=== PATIENT | female | born 1970 | race Caucasian/White ===

== ENCOUNTER → 2016-05-20 | Outpatient (CLI) | payer BC ==
[~2016-05-20] MED LIST: ADVIL200 MG PO; ASCORBIC ACID500 MG PO; ATIVAN 0.5MG0.5 MG PO; BENADRYL25 MG PO; BENGAY ULTRA S1 EACH TOP; BREO ELLIPTA 11 EACH INH; FIORINAL 50-321 EACH PO; FLEXERIL10 MG PO; FLOMAX0.4 MG PO; GABAPENTIN300 MG PO; JUICE PLUS GUMMIES PO; PROAIR HFA8.5 GM PO; SINGULAIR10 MG PO; TYLENOL325 MG PO; ZOLOFT25 MG PO; ZYRTEC10 MG PO
--- NOTE | ~2016-05-20 | ECHO ---
Transthoracic Echocardiography Report (TTE) Demographics Patient Name GUILLE MCDANIEL Date of Study 05/20/2016 Patient Number [id number] Visit Number [id number] Date of 1970 Room Number Accession Number [id number] Gender Female Age 45 year(s) Referring Jermaine Car MD Angular Js Developer Gali Wynne [facility] Physician Josias Anderson Physician Interpreting Edgardo Adlergato Film And Video Graphics Designer Physician Supervising Ordering Physician Jermaine Car MD, MD/P Nurse Stress Housekeeping Supervisor Hotel Conclusions Contractility Score Summary Normal Left Ventricular contractility was noted. Summary The estimated left ventricular ejection fraction is 60%. The left ventricle is normal in size . Diastolic assessment reveals Grade I diastolic dysfunction. The aortic valve is mildly sclerotic. There is mild aortic regurgitation by color Doppler. The aortic root appears mildly dilated. The maximum diameter measures 3.9 cm. Procedure Type of Study TTE procedure:2D Echocardiogram, M-Mode, Doppler , Color Doppler. Procedure Date Date: 05/20/2016 Start: 09:56 AM Study Location: Inpatient Portable Technical Quality: Good visualization Indications:Heart murmur and Shortness of breath. Appropriate Use Criteria: 9 Patient Status: Routine HR: 69 bpm BP: 140/74 mmHg M-Mode/2D Measurements LV Diastolic Dimension: 5.02 cm LV Systolic Dimension: 2.82 cm LV Septum Diastolic: 0.77 cm LV PW Diastolic: 0.88 cm AO Root Dimension: 2.8 cm Cardiac Output: 7.21 l/min AV Cusp Separation: 2 cm RV Diastolic Dimension: 3.12 cm LA volume: 41 ml LVOT: 2.2 cm RV Base: 3.26 cm LVOT VTI: 27.5 cm RV Mid: 2.74 cm LV Stroke volume: 104.48 ml TAPSE: 2.66 cm TDI-S': 14.9 cm/s Doppler Measurements AV Peak Velocity: 1.29 m/s MV Peak E-Wave: 0.64 m/s AV Peak Gradient: 6.66 mmHg MV Peak A-Wave: 0.78 m/s AV Mean Gradient: 4 mmHg MV E/A Ratio: 0.82 LVOT Peak Velocity: 1.14 m/s MV P1/2t: 36 msec AV P1/2t: 696 msec Estimated RAP:8 mmHg PV Peak Velocity: 0.93 m/s E' Septal Velocity: 0.09 m/s PV Peak Gradient: 3.46 mmHg A' Septal Velocity: 0.09 m/s Findings Left Ventricle The left ventricle is normal in size . Diastolic assessment reveals Grade I diastolic dysfunction. Right Ventricle Normal right ventricle structure and function. Left Atrium Normal left atrial size. Right Atrium Normal right atrial size. IVC measures 2.1 cm with inspiratory collapse. Mitral Valve Normal mitral valve structure and function. Trivial mitral regurgitation by color Doppler. Aortic Valve The aortic valve is mildly sclerotic. There is mild aortic regurgitation by color Doppler. Tricuspid Valve Normal tricuspid valve structure and function. Trivial tricuspid regurgitation by color Doppler. Pulmonic Valve Normal pulmonic valve structure and function. Pericardial Effusion No evidence of pericardial effusion. Miscellaneous The aortic root appears mildly dilated. The maximum diameter measures 3.9 cm. Pleural Effusion No evidence of pleural effusion. Contractility Score LV regional wall motion:(0-Non visualized 1-Normal 2-Hypokinesis 3-Akinesis 4-Dyskinesis 5-Aneurysm) Signature dtt: FRITZ SERRANO dtd: 05/20/16 0956 Physician Self Edit
--- NOTE | ~2016-05-20 | PUL ---
PATIENT'S NAME: GUILLE MCDANIEL [facility] AGE: 45 Y [address] ROOM: [place] [address] LOCATION: [facility] ADMIT DATE: 05/20/2016 Pulmonary DISCHARGE DATE: FAMILY PHYSICIAN: Zaira Dean MD ATTENDING PHYSICIAN: Zaira Dean NAME OF PROCEDURE: Pulmonary Function Test DATE OF PROCEDURE: May 20, 2016 TECH: STORMY Cruz REASON FOR EXAM: Shortness of breath RESULTS: 1. FVC was 3.3 liters which is 95% predicted and normal, FEV1 was 2.83 liters which is 101% of predicted and normal, and FEV1/FVC was 86% and normal. The flow volume curve did not reveal any significant airflow limitation. After bronchodilator administration FVC increased to 3.48 liters which is a 5% increase and FEV1 increased to 2.94 liters which is a 4% increase. FEV1/FVC was 85%. 2. DLCO was 21.9 with an adjusted DLCO of 25.4 which is 116% of predicted and normal. 3. Total lung capacity was 5.01 liters which is 104% of predicted and normal, and residual volume was 1.69 liters which is 103% of predicted and normal. PHYSICIAN INTERPRETATION: The patient has no airflow limitation and no significant bronchodilator response. Her diffusion capacity is normal. There is no evidence of restrictive lung disease. Essentially this is a normal pulmonary function test. MD YUKO ALEXANDER/rei /[id number] dtt: 05/25/16 1617 , RENATA DARBY dtd: 05/25/16 1519
== END | disposition disaster alternative care site (69) ==
LOC: GCAR 09:40
DX: R07.89 Other chest pain (principal); E55.9 Vitamin D deficiency, unspecified; D64.9 Anemia, unspecified; I35.1 Nonrheumatic aortic (valve) insufficiency; I51.89 Other ill-defined heart diseases; R06.02 Shortness of breath; R68.89 Other general symptoms and signs; R01.1 Cardiac murmur, unspecified; R06.2 Wheezing; Z82.49 Family history of ischemic heart disease and other diseases of the circulatory system

== ENCOUNTER → 2016-05-25 | Outpatient (CLI) | payer BC ==
--- NOTE | ~2016-05-25 | ESTC ---
Cardiac Perfusion Imaging Demographics Patient Name JONAS Etienne Gender Female Patient Number [id number] Race Visit Number [id number] Ethnicity Corporate ID Room Number Accession Number [id number] Height 66 inches Date of 1970 Weight 150 pounds Interpreting Ubaldo Roland MD Date of study 05/25/2016 Physician Supervising /EDGAR Ibarra NM Technologist Yohan Sultana APRN Ordering Physician Stress metrology technician Stress ECG Reading Jhon Ibarra Nurse Demetri Valdez RN Physician CHRISTINE The procedure was explained in detail to the patient. Risks, complications and alternative treatments were reviewed. Written consent was obtained. Medications Reviewed with Patient prior to Procedure. Procedure Admit Source:Other. Procedure Type: Nuclear Stress Test:Exercise, Cardiolite Stress Test Procedure Start time: 05/25/2016 00:00 Indications: Chest pressure. Risk Factors The patient risk factors include:family history of premature CAD. Conclusions Summary Cardiolite SPECT images demonstrate homogenous uptake of radioactive tracer. NO evidence of inducible reversible defect and no evidence of underlying fixed defect. Normal TID ratio of 1.07 Gated images demonstrate normal left ventricular systolic function. LVEF is 74% Stress Protocols Resting ECG RSR without ST changes Resting HR:63 bpm Resting BP:126/82 mmHg Pre-stress physical exam: Complains of chest pain with and without exertion. Has been training for [employer] and had issues with cyanotic lips. Echo pending, PFT's pending. O2 Sat 100%. Stress Protocol:Exercise Peak HR:150 bpm HR response: Appropriate Peak BP:164/70 mmHg BP response: Appropriate Predicted HR: 174 bpm HR/BP product:47731 % of predicted HR: 86 Test duration:11:03 min Reason for termination:Target heart rate Perceived exertion:12 ECG Findings Sinus rhythm to sinus tachy. Arrhythmias No rhythm abnormality. Symptoms At 3 minutes complained of 1/10 chest discomfort. Corner of mouth tingly and cyanotic with max HR 150. O2 Sats remain 150. Chest pain better after treadmill stopped and rests. Stress Interpretation Appropriate hemodynamic response to exercise. No significant ST-T wave changes with exercise. EKG portion is negative for ischemia by diagnostic criteria. The Oconnor Treadmill score was 12 .This corresponds to a low risk stress test. Stress supervision and interpretation provided by Anny Ferreira APRN . Imaging Results Summed scores - Summed stress score: 2 - Summed rest score: 1 - Summed difference score: 1 Stress ejection Ejection fraction:74 % EDV :96 ml ESV :25 ml Stroke volume :71 ml LV mass :136 gr Imaging Protocols Rest Stress Isotope:Tc99m Sestamibi IV Isotope: Tc99m Sestamibi IV Isotope dose:10.4 mCi Isotope dose:31.8 mCi Date:05/25/2016 07:04 Date:05/25/2016 08:53 Technique: SPECT Technique: Gated Supine SPECT Supine Scan Time:30 minutes post injection Scan Time:45-60 minutes post injection Medical History Admission Data Admission date: 05/25/2016 Admission Time: 06:27 Hospital Status: Outpatient. Signatures dtt: Luan Conner (cardio) dtd: 05/25/16 0000 Physician Self Edit
== END | disposition disaster alternative care site (69) ==
LOC: GRAD 06:27
DX: R07.89 Other chest pain (principal); Z82.49 Family history of ischemic heart disease and other diseases of the circulatory system
CPT/HCPCS: A9500

== ENCOUNTER 2016-06-05 11:12 | Emergency (ER) | payer BC ==
--- NOTE | ~2016-06-05 | ER ---
PATIENT'S NAME: GUILLE MCDANIEL [facility] AGE: 45 Y [address] ROOM: [place] [address] LOCATION: [facility] ADMIT DATE: 06/05/2016 ER/Outpatient Report DISCHARGE DATE: 06/05/2016 FAMILY PHYSICIAN: Zaira Dean MD ATTENDING PHYSICIAN: Frank Hui CHIEF COMPLAINT: Chest pressure and pain. HISTORY OF PRESENT ILLNESS: The patient works as a nurse. She was at work today when she had onset of chest pain approximately an hour before arrival. It is located in the center of her chest and radiates down her left arm. She does have some left-sided jaw pain. She states that she has been having some issues with her heart lately. She has noted that she becomes cyanotic during her karate workouts. She has been undergoing an evaluation for same. She has had recent cardiac echo and pulmonary function testing with no significant findings for that. Her recent stress test was negative for inducible ischemic the deficit. She does have a family history of cardiac disease with grandparent having early onset cardiac disease at 50, but her mother having cardiac disease in her 70s. The patient states she has never had any pain exactly like this with the intensity of this before. She did come in by ambulance. She did receive some nitroglycerin en route. She stated that made her pain worse rather than better and she did receive aspirin prior to arrival. PAST MEDICAL HISTORY: Notable for possible aortic valve disease as well as very mild dilation of the ascending aorta. She has a history of depression and anxiety as well. The patient does report a history of thalassemia. MEDICATIONS: Documented on the record and reviewed by me. ALLERGIES: DOCUMENTED ON THE RECORD AND REVIEWED BY ME. REVIEW OF SYSTEMS: All systems reviewed and negative except as noted in the HPI. PHYSICAL EXAMINATION: VITAL SIGNS: Blood pressure 135/77, pulse is 87, respiratory rate is 20, temperature 97.8, SpO2 is 97% on room air. Pain is rated 8/10. GENERAL: An age appropriate female, sitting upright in the exam chair, holding her right fist to her chest. She is in mild discomfort. No respiratory distress. PATIENT'S NAME: GUILLE MCDANIEL [facility] AGE: 45 Y [address] ROOM: [place] [address] LOCATION: [facility] ADMIT DATE: 06/05/2016 ER/Outpatient Report DISCHARGE DATE: 06/05/2016 FAMILY PHYSICIAN: Zaira Dean MD ATTENDING PHYSICIAN: Frank Hui NEUROLOGIC: Awake and alert. GCS is 15. No focal deficits. No obvious asymmetry on exam. HEENT: Normocephalic, atraumatic. Eyes are PERRL. Oropharynx is clear. NECK: Supple. Trachea is midline. CHEST: Heart is regular rate and rhythm, no appreciated murmurs. LUNGS: Clear to auscultation bilateral in all lung tolbert. No rhonchi, wheezes, or rales. ABDOMEN: Soft, nontender, and nondistended. No rebound or guarding. BACK: Nontender to palpation throughout. There is no CVA tenderness. EXTREMITIES: Warm and well perfused. No appreciated peripheral edema or deformities. SKIN: Warm, dry, and intact. LABORATORY DATA AND X-RAYS: Chest x-ray reviewed by me with no obvious abnormalities. The pre-hospital and in-hospital EKGs were obtained. Significant artifact on pre-hospital and initial EKG; however, no signs of acute ischemia. No ST-segment elevation or changes. Normal intervals with a rate of 80. Lactate is 1.3. CBC is notable for hemoglobin of 9.5, WBCs of 5.7, and platelets of 395. INR is 0.98. D- dimer 0.24. CRP is below detectable threshold. CMS is without abnormality. Troponin is below threshold. Repeat EKG with resolution of artifact slightly delayed R-wave progression, but otherwise normal EKG. Repeat troponin and CK- MB remains non concerning. IMPRESSION: Chest pain, not otherwise specified. EMERGENCY DEPARTMENT COURSE: The patient was seen and evaluated. The nitroglycerin made her chest pain worse, so we did not give any more of that. She received aspirin prior to arrival. She is given Zofran, GI cocktail, morphine with no improvement in her pain. Ativan and a second dose of morphine did help her get better. The pain did get a slightly worse when she was up ambulating, but it was remained tolerable. I did contact Dr. Conner, mate fishing vessel, to schedule to catheter in a few days. Based on this presentation and discussion with him I think the patient is at low risk for ACS. I discussed risks and benefits, and the patient has elected to go home. Her presentation is not consistent with PE as the patient's Dimer is below threshold and no other signs or symptoms of same. No pneumothorax or pneumonia. Her presentation is not consistent with dissection or expanding aneurysm at this time. The patient has good medical knowledge and I feel comfortable sending her home with instructions to return if there is any worsening of her current presentation. All questions were answered. The patient was discharged in good condition. PATIENT'S NAME: GUILLE MCDANIEL [facility] AGE: 45 Y [address] ROOM: [place] [address] LOCATION: [facility] ADMIT DATE: 06/05/2016 ER/Outpatient Report DISCHARGE DATE: 06/05/2016 FAMILY PHYSICIAN: Zaira Dean MD ATTENDING PHYSICIAN: Frank Hui FRANK HUI MD JH/modl /[id number] d: 06/06/16 1631 t: 06/23/16 0853, OUTPATIENT REPORT
[2016-06-05 11:44] LABS: BASOPHIL # 0.1 K/uL (0.0-0.2); BASOPHIL % 0.9 %; EOSINOPHIL # 0.2 K/uL (0.0-0.5); EOSINOPHIL % 2.6 %; HEMATOCRIT 30.9 % (33.0-46.0); HEMOGLOBIN 9.5 g/dL (10.0-15.0); IMMATURE GRANULOCYTE % 0.4 %; LYMPHOCYTE # 1.9 K/uL (0.8-4.0); LYMPHOCYTE % 33.6 %; MCH 18.6 pg (27.0-34.0); MCHC 30.7 gm/dL (32.0-36.5); MCV 60.6 fl (83.0-98.0); MONOCYTE # 0.4 K/uL (0.0-1.0); MONOCYTE % 6.5 %; MPV 9.9 fl (9.4-12.4); NEUTROPHIL # (ANC) 3.2 K/uL (1.8-7.8); NRBC % 0 /100WBC (0-0.00); PLATELET COUNT 395 K/uL (150-450); WBC 5.7 K/uL (4.0-11.0)
[2016-06-05 11:53] LABS: INR - (THERAPEUTIC) 0.98 (0.92-1.07); PROTIME 10.3 SECONDS (9.8-11.4); PTT 28 SECONDS (25-32)
[2016-06-05 12:07] LABS: ALBUMIN 3.8 gm/dL (3.5-5.0); ALK PHOS 46 IU/L (33-138); ALT 29 IU/L (12-78); ANION GAP 10.7 (10.0-19.0); AST 17 IU/L (10-40); BLOOD UREA NITROGEN 9 mg/dL (6-24); CALCIUM 8.6 mg/dL (8.5-10.5); CHLORIDE 106 mMol/L (96-110); CO2 25 mMol/L (22-32); CREATININE 0.7 mg/dL (0.5-1.1); ESTIMATED GFR (MDRD EQUATION) > 60; POTASSIUM 3.7 mMol/L (3.7-5.1); SODIUM 138 mMol/L (135-145); TOTAL BILIRUBIN 0.4 mg/dL (0.0-1.5); TOTAL PROTEIN 7.1 g/dL (6.0-8.4)
[2016-06-05 13:54] LABS: CPK 76 IU/L (21-215)
[2016-06-07] MEDS ORDERED: GABAPENTIN300 MG PO ×2 (09:23)
[2016-06-07] MEDS ORDERED: SINGULAIR10 MG PO (09:23)
[2016-06-07] MEDS ORDERED: ZOLOFT25 MG PO (09:23)
[2016-06-07] MEDS ORDERED: BREO ELLIPTA 11 EACH INH (09:24)
[2016-06-07] MEDS ORDERED: FLOMAX0.4 MG PO (09:24)
[2016-06-07] MEDS ORDERED: FLEXERIL10 MG PO (09:25)
[2016-06-07] MEDS ORDERED: ATIVAN 0.5MG0.5 MG PO (09:25)
[2016-06-07] MEDS ORDERED: ZYRTEC10 MG PO (09:26)
[2016-06-07] MEDS ORDERED: FIORINAL 50-321 EACH PO (09:26)
[2016-06-07] MEDS ORDERED: BENADRYL25 MG PO (09:26)
[2016-06-07] MEDS ORDERED: TYLENOL325 MG PO (09:27)
[2016-06-07] MEDS ORDERED: ADVIL200 MG PO (09:27)
[2016-06-07] MEDS ORDERED: BENGAY ULTRA S1 EACH TOP (09:28)
[2016-06-07] MEDS ORDERED: JUICE PLUS GUMMIES PO (09:29)
[2016-06-07] MEDS ORDERED: ASCORBIC ACID500 MG PO (09:29)
[2016-06-07] MEDS ORDERED: PROAIR HFA8.5 GM PO (09:29)
== END 2016-06-05 14:38 | disposition disaster alternative care site (69) ==
LOC: GMED 11:12
PROVIDERS: Emergency Medicine
DX: R07.9 Chest pain, unspecified (principal); F41.8 Other specified anxiety disorders; Z79.899 Other long term (current) drug therapy
CPT/HCPCS: J2060; J2270; J2405

== ENCOUNTER → 2016-06-05 | Outpatient (CLI) | payer BC | END | disposition disaster alternative care site (69) | LOC: GAMB 10:56 | DX: I20.9 Angina pectoris, unspecified (principal); R20.2 Paresthesia of skin; Z79.2 Long term (current) use of antibiotics; Z79.899 Other long term (current) drug therapy; Z88.2 Allergy status to sulfonamides | CPT/HCPCS: A0425; A0427 ==

== ENCOUNTER 2016-06-08 05:56 | Outpatient (CLI) | payer BC ==
[~2016-06-08] VITALS: Ht 167.6 cm; Wt 69.1 kg
--- NOTE | ~2016-06-08 | CATH ---
Cardiac Diagnostic Report Demographics Patient Name JONAS Etienne Gender Female Date of 1970 Age 45 year(s) Patient Number [id number] Date of Study 06/08/2016 Visit Number [id number] Room Number G[address] [place] [id number] Ht 167.64 cm Wt 68.2 kg Referring Jermaine Car MD Primary Physician Physician Performing Ubaldo Roland MD Secondary Physician Physician Diagnostic Ubaldo Roland MD Assisting Physician Physician Interventional Physician Java Web Application Developer Physician Findings and Conclusions Diagnostic Findings and Conclusion non obstructive CAD. Normal LV function No evidence of O2 step-up. Diagnostic Recommendations Medical therapy Procedure Description The patient was brought to the diagnostic cardiac catheterization-EP laboratory in the fasting, non-sedated state. Informed consent was obtained in the written and verbal form after the risks and benefits were explained. The patient had no further questions and agreed to proceed. The planned puncture-incision site(s) were shaved and prepped with ChloraPrep and draped in the usual sterile manner. Pain control medications were delivered by a registered nurse under physician guidance. Surface ECG rhythm, blood pressure measurement, and pulse oximetry were monitored throughout the procedure. Arterial access. The access site was infiltrated with lidocaine. The vessel was entered with the Seldinger technique. A sheath was advanced into the vessel and used for catheter placement. Venous access. The access site was infiltrated with 2% lidocaine. The vessel was entered with the Seldinger technique. A sheath was advanced into the vessel and used for catheter placement. Selective left coronary angiography. A catheter was advanced into the left coronary vessel ostium under Fluoroscopic guidance. Contrast was injected by hand. Images were obtained in multiple projections. Selective right coronary angiography. A catheter was advanced into the right coronary vessel ostium under fluoroscopic guidance. Contrast was injected by hand. Images were obtained in multiple projections. Left heart catheterization. A catheter was advanced across the aortic valve to the left ventricle under fluoroscopic guidance. Resting hemodynamics were obtained. Right heart catheterization. A Stanley Trixie catheter was successfully advanced to the right atrium, right ventricle, pulmonary artery, and pulmonary artery wedge position under fluoroscopic guidance. Resting hemodynamics were obtained. Measurements included pressures, arterial and venous oxygen saturation samples, and cardiac output. The Stanley was removed without difficulty. Arterial and Venous hemostasis was achieved. The patient was transferred to a regular nursing floor via cart accompanied by a nurse. The patient left the laboratory in stable condition. Diagnostic Cath Status: Elective Procedure Procedure Type Diagnostic procedure:Ventriculogram:, Left, Angiography:, Right and Left Heart Cath, Coronary Angios Indications: Chest pain and Dyspnea with exertion. The procedure was explained in detail to the patient. Risks, complications and alternative treatments were reviewed. Written consent was obtained. Medications Reviewed with Patient prior to Procedure. Angiographic Findings Dominance: Right Cardiac Arteries and Lesion Findings LMCA: Normal (0% Stenosis).Large. LAD: Normal (0% Stenosis).Large proximal normal. Diag 1 small normal. Diag 2 medium normal. LCx: Normal (0% Stenosis).Large normal. OM 1 small ok. OM2 medium normal. RCA: Normal (0% Stenosis).Large. PL small ok. PDA medium normal. Procedure Data Procedure Date Date: 06/08/2016Start: 11:20 AMEnd: 12:05 PM Entry Locations - Retrograde Percutaneous access was performed through the Right Femoral artery (Primary location). A 6 Fr sheath was inserted. Hemostasis was successfully obtained using Angio-Seal STS PLUS ([place]). Closure Comments: Angioseal deployed by Diana Christopher.. - Antegrade Percutaneous access was performed through the Right Femoral vein. A 7 Fr sheath was inserted. Hemostasis was successfully obtained using Manual Compression. Closure Comments: 10 minutes of manual pressure held to venous site by Diana.. Procedure Medications Order and Administration + + +-------+------+ !Time !Medication !Dosage !Route ! + + +-------+------+ !06/08/2016 11:13 AM !Fentanyl !25 mcg !I.V. ! + + +-------+------+ !06/08/2016 11:39 AM !Fentanyl !25 mcg !I.V. ! + + +-------+------+ !06/08/2016 11:52 AM !Fentanyl !25 mcg !I.V. ! + + +-------+------+ Devices Used - A6 Fr. BS Angled Pigtail Diag. Catheterwas used for:LV Pressures. - A6 Fr. BS JL 4 Diag. Catheterwas used for:Left coronary angiography. - A6 Fr. BS JR 4 Diag. Catheterwas used for:Right coronary angiography. Contrast Material - Isovue [id number] ml Fluoroscopy Time: Diagnostic: 5:48 minutes. Total: 5:48 minutes. Fluoroscopy Dose: Diagnostic: 245 mGy. Total: 245 mGy. Estimated Blood Loss: 4 ml. Medical History Performed Procedures and Imaging Results - Stress testing with SPECT MPIwas performed. Results were: Positive. Allergies - Sulfa. - Other:(intubation tube). Risk Factors The patient risk factors include:family history of premature CAD. Admission Data Admission Date: 06/08/2016 Admission Time: 05:56 AM Admit Source: Other Insurance Payors: Private health insurance. Clinical Evaluation Leading to Procedure - There were no CAD presentation symptoms. - There were no anginal symptoms. VA Ventriculography Findings Hyperdynamic EF 70-75 %. No MR LV function assessed as:Normal. Ejection Fraction - Method: LV gram. EF%: 75. - Method: Radionucleotide. EF%: 74. LVA Segment Contractility 1 - Normal 3 - Mild 5 - Severe 7 - Dyskinesis hypokinesis hypokinesis 2 - 4 - Moderate 6 - Akinesis 8 - Aneurysm Hypokinesis hypokinesis Hemodynamics Condition: Rest O2 Consumption: Estimated: 178.12Heart Rate: 73 bpm Oxygen Saturation +--------+-----+----+ +---+ + !Location!pCO2 !pO2 !% Saturation !Hgb!O2 Content ! +--------+-----+----+ +---+ + !High RA ! ! !66.5 ! ! ! +--------+-----+----+ +---+ + !SVC ! ! !65.9 ! ! ! +--------+-----+----+ +---+ + !IVC ! ! !77.4 ! ! ! +--------+-----+----+ +---+ + !FA ! ! !98 ! ! ! +--------+-----+----+ +---+ + !Mid RA ! ! !71.8 ! ! ! +--------+-----+----+ +---+ + !Low RA ! ! !72.3 ! ! ! +--------+-----+----+ +---+ + !PCW ! ! !91.1 ! ! ! +--------+-----+----+ +---+ + Pressures (mmHg) +-----+ + !Site !Pressure ! +-----+ + !AO !/ (166) ! +-----+ + !RA !6/3 (2) ! +-----+ + !AO !/ (167) ! +-----+ + !RV !26/0 ,3 ! +-----+ + !AO !/ (167) ! +-----+ + !PCW !87 (3) ! +-----+ + !AO !/ (167) ! +-----+ + !PA !17/4 (10) ! +-----+ + !LV !126/-4 ,8 ! +-----+ + !PA !13/6 (6) ! +-----+ + !LV !131/0 ,9 ! +-----+ + !PA !15/7 (7) ! +-----+ + !LV !132/0 ,9 ! +-----+ + !LV !135/-1 ,10 ! +-----+ + !PA !16/8 (7) ! +-----+ + !LV !122/-3 ,9 ! +-----+ + !LV !128/0 ,12 ! +-----+ + !LV !127/-4 ,12 ! +-----+ + !AO !129/63 (92) ! +-----+ + !LV !127/0 ,14 ! +-----+ + !AO !120/81 (99) ! +-----+ + Cardiac Output + + +------+ !Time !Cardiac Output (l/min) !Use ! + + +------+ !06/08/2016 11:47 AM !6.5 !True ! + + +------+ !06/08/2016 11:47 AM !6.13 !True ! + + +------+ !06/08/2016 11:48 AM !5.08 !False ! + + +------+ !06/08/2016 11:48 AM !6.39 !False ! + + +------+ !06/08/2016 11:49 AM !5.54 !True ! + + +------+ Cardiac Output +-------+ + + + !Method !CO (l/min) !CI (l/min/m2) !SV (ml) ! +-------+ + + + !Micaela !4.53 !2.6 !61.65 ! +-------+ + + + !Thermal!6.694676 !3.4 !85.71 ! +-------+ + + + Valve Gradients and Areas + +--------+--------+--------+---------+ + + !Valve !Peak !Mean !Area !Index !Flow !Source ! + +--------+--------+--------+---------+ + + !Aortic !0 !0 ! ! !516.53 !Micaela ! + +--------+--------+--------+---------+ + + !Aortic !0 !0 ! ! !690.61 !Thermal ! + +--------+--------+--------+---------+ + + Shunts Oxygen Values O2 Capacity 134.64 O2 Consumption 178.12 Flows (l/min) Qs 4.53 Qe 5.93 Vascular Resistance (dynes x sec x cm-5) + +-----+-----+----+----+---------+-------+ !CO method !TSVR !SVR !TPVR!PVR !TPVR/TSVR!PVR/SVR! + +-----+-----+----+----+---------+-------+ !Micaela !21.79!21.38!1.55!0.99!0.07 !0.05 ! + +-----+-----+----+----+---------+-------+ !Thermal !16.3 !15.99!1.16!0.74!0.07 !0.05 ! + +-----+-----+----+----+---------+-------+ !Qp or Qs !21.79!21.38! ! ! ! ! + +-----+-----+----+----+---------+-------+ Discharge Data Discharge Date: 06/08/2016 Hospital Status: Outpatient Signatures dtt: Luan Conner (cardio) dtd: 06/08/16 1120 Physician Self Edit
== END 2016-06-08 16:50 | disposition disaster alternative care site (69) ==
LOC: GCAT 05:56 → GPCU 05:56 → GPOC 09:00 → GCAT 16:50
PROC: B2151ZZ Fluoroscopy of Left Heart using Low Osmolar Contrast (ICD-10-PCS; principal; 2016-06-08)
PROC: 4A023N8 Measurement of Cardiac Sampling and Pressure, Bilateral, Percutaneous Approach (ICD-10-PCS; principal; 2016-06-08)
PROC: B2111ZZ Fluoroscopy of Multiple Coronary Arteries using Low Osmolar Contrast (ICD-10-PCS; principal; 2016-06-08)
DX: R07.89 Other chest pain (principal); R23.0 Cyanosis; R00.2 Palpitations; I10 Essential (primary) hypertension; F41.9 Anxiety disorder, unspecified; J45.990 Exercise induced bronchospasm; J30.9 Allergic rhinitis, unspecified; Z79.1 Long term (current) use of non-steroidal anti-inflammatories (NSAID); Z79.51 Long term (current) use of inhaled steroids; Z79.899 Other long term (current) drug therapy; Z87.891 Personal history of nicotine dependence; Z82.49 Family history of ischemic heart disease and other diseases of the circulatory system
CPT/HCPCS: C1760; J1644; J2250; J3010; J7030; J7060

== ENCOUNTER → 2016-06-15 | Outpatient (CLI) | payer BC ==
--- NOTE | ~2016-06-15 | PUL ---
PATIENT'S NAME: GUILLE MCDANIEL [facility] AGE: 45 Y [address] ROOM: [place] [address] LOCATION: [facility] ADMIT DATE: 06/15/2016 Pulmonary DISCHARGE DATE: FAMILY PHYSICIAN: Zaira Dean MD ATTENDING PHYSICIAN: RENATA DARBY NAME OF PROCEDURE: Spirometry DATE OF PROCEDURE: June 15, 2016 TECH: STORMY Cruz REASON FOR EXAM: Shortness of breath RESULTS: 1. FVC was 3.08 liters which is 80% of predicted and low, FEV1 was 2.58 which is 83% of predicted and low, and FEV1/FVC was 84%. The flow volume curve did not reveal significant airflow limitation. After bronchodilator administration FVC decreased to 3.01 liters and FEV1 decreased to 2.51 liters. FEV1/FVC was 83%. PHYSICIAN INTERPRETATION: The patient has no airflow limitation and no significant bronchodilator response. There is a suggestion of restrictive lung disease but lung volumes are needed to confirm that. RENATA DARBY MD RFMark/ks /[id number] dtt: 06/17/16 1624 , RENATA DARBY dtd: 06/17/16 1306
== END | disposition disaster alternative care site (69) ==
LOC: GRTH 10:37
DX: R09.02 Hypoxemia (principal); R06.02 Shortness of breath